=== PATIENT | female | born 1955 | race Caucasian/White ===

== ENCOUNTER → 2016-05-26 | Outpatient (CLI) | payer BC, OTHER ==
[~2016-05-26] MED LIST: ADVIL200 M2 PO; K-DUR20 ME2 PO; LORTAB 7.51 TAB 7.5/ DOB; MULTI VITAMIN1 EACH PO; NO MEDICATIONS; PERCOCET5/325 PO
--- NOTE | ~2016-05-26 | CT2 ---
[facility] A Service [facility] RADIOLOGY TEXT RESULTS PATIENT: COLE HARDEN LOCATION: [facility] #: [id number] : 55 UNIT #: [id number] AGE: [address]: Ty Guerin MD SEX: F ORDER DR: [id number] [facility] [address]. [place], [place] [address] [id number] O MR#: [id number] [facility] #: [id number] NAME: COLE HARDEN. : 1955 SEX: F STUDY DATE/TIME: 05/26/2016 10:04 UNIT: [facility] ROOM: STUDY DESCRIPTION: CT Abd and Pelv W Cont Attending Physician: Ty Guerin M.D. Referring Physician: Ty Guerin M.D. Ordering Physician: Ty Guerin M.D. Primary Care Physician: Primary Care Physician No MEDICAL IMAGING REPORT This report is preliminary unless electronic signature is present EXAM CT of the abdomen and pelvis with contrast INDICATIONS Colon cancer. Observation for metastatic disease. TECHNIQUE CT of the abdomen and pelvis was performed following administration of IV contrast. Coronal and sagittal reformatted images were obtained. The CT exam was performed with one or more of the following radiation dose reduction techniques: automatic exposure control, adjustment of mA and/or kV according to patient size, and iterative reconstruction. COMPARISON 05/28/2015 FINDINGS The lung bases are clear. There is diffuse fatty infiltration of the liver. The gallbladder is unremarkable. The spleen is unremarkable. Left kidney unremarkable. Tiny cyst right kidney. Adrenal glands unremarkable. Pancreas is unremarkable. There is no ascites or lymphadenopathy. There is a large ventral abdominal wall hernia containing multiple loops of bowel but no evidence for obstruction. The hernia is stable compared with the previous study. Pelvis: Postop changes of the colon. Normal appendix. No free fluid. Stable 5 cm right adnexal cyst. No evidence of lymphadenopathy in the pelvis or free fluid. Bone windows are unremarkable. IMPRESSION [facility] A Service [facility] RADIOLOGY TEXT RESULTS PATIENT: COLE HARDEN LOCATION: [facility] #: [id number] : 55 UNIT #: [id number] AGE: [address]: Ty Guerin MD SEX: F ORDER DR: 1. No evidence for metastatic disease. 2 Additional findings as described. Dictated by... Wily Jack M.D. THIS IS AN ELECTRONICALLY VERIFIED REPORT Wily Jack M.D. at 05/27/2016 7:53 AM EUSEBIO/vitaly TD: 05/26/2016 13:18 JOB #: [id number] MEDICAL IMAGING REPORT Page 1 of 1 COPY
[2016-05-26 12:21] LABS: POC - CREATININE 0.72 mg/dL (0.44-1.03); POC - GFR >60.0 mL/min (>60)
== END | disposition home or self-care (01) ==
LOC: CCAT 08:51
PROVIDERS: Internal Medicine Hematology
DX: C18.9 Malignant neoplasm of colon, unspecified (principal)
CPT/HCPCS: 74177; 82565; Q9967